=== PATIENT | female | born 1995 | race Caucasian/White ===

== ENCOUNTER 2018-05-22 18:49 | Emergency (ER) | payer BC ==
[~2018-05-22] VITALS: Ht 177.8 cm; Wt 90.0 kg
[2018-05-22] MEDS ORDERED: ACETAMINOPHEN 500MG TABLET PO ONE (19:45)
[2018-05-22 20:34] LABS: BASOPHILS % 0.2 % (0.0-2.0); EOSINOPHILS % 1.3 % (0.0-5.0); HEMATOCRIT. 36.5 % (36.0-48.0); HEMOGLOBIN. 12.4 g/dL (12.0-16.0); LYMPHOCYTES % 13.9 % (20.0-50.0); MEAN CORPUSCULAR HEMOGLOBIN 29.7 pg (28.0-32.0); MEAN CORPUSCULAR VOLUME 87.9 fL (81.0-99.0); MEAN PLATELET VOLUME 7.8 fl (7.4-10.4); MONOCYTES % 7.5 % (2.0-8.0); NEUTROPHILS % 77.1 % (40.0-76.0); PLATELET 236 x1000/uL (130-400); RED BLOOD CELL COUNT 4.16 mill/uL (4.2-5.4); RED CELL DISTRIBUTION WIDTH 12.8 % (11.6-14.6)
[2018-05-22 20:42] LABS: CHLORIDE 109 mEq/L (98-107)
[2018-05-22 20:55] LABS: HCG SCREEN NEGATIVE
[2018-05-22 22:02] VITALS: BP 129/69
== END 2018-05-22 22:35 | disposition home or self-care (01) ==
LOC: ER 19:15
DX: S00.511A Abrasion of lip, initial encounter (principal); R55 Syncope and collapse; R51 Headache; R42 Dizziness and giddiness; M54.2 Cervicalgia; F12.10 Cannabis abuse, uncomplicated; Z88.1 Allergy status to other antibiotic agents; E28.2 Polycystic ovarian syndrome; W18.39XA Other fall on same level, initial encounter; Y93.89 Activity, other specified; Y92.89 Other specified places as the place of occurrence of the external cause; Y99.8 Other external cause status
CPT/HCPCS: 36415; 70450; 72125; 80053; 84703; 85025; 93005; 99285